=== PATIENT | female | born 1970 | race Caucasian/White ===

== ENCOUNTER 2017-11-11 17:00 | Emergency (ER) | payer BC ==
[2017-11-11 19:26] LABS: INTERNATIONAL RATION (INR) 1.84; PROTHROMBIN TIME 22.1 SEC (11.4-15.4)
[2017-11-11 19:27] LABS: PARTIAL THROMBOPLASTIN TIME 36.6 SEC (23.5-35.8)
[2017-11-11 19:37] LABS: ANION GAP 12 (5-19); BLOOD UREA NITROGEN 8 mg/dL (7-20); CALCIUM 10.3 mg/dL (8.4-10.2); CARBON DIOXIDE 25 mmol/L (22-30); CHLORIDE 108 mmol/L (98-107); GLUCOSE 89 mg/dL (75-110); POTASSIUM 4.1 mmol/L (3.6-5.0); SODIUM 144.9 mmol/L (137-145)
[2017-11-11 19:38] LABS: CREATINE KINASE 68 U/L (30-135)
--- NOTE | 2017-11-11 20:14 | ER Document Report ---
ED General - General Chief Complaint: Leg Pain Stated Complaint: LEG PAIN Time Seen by Provider: 11/11/17 17:45 TRAVEL OUTSIDE OF THE [place] 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 Denies any trauma - Related Data Allergies/Adverse Reactions: steroids Allergy (Uncoded 11/11/17 17:48) Past Medical History - Social History Smoking Status: Current Some Day Smoker Chew tobacco use (# tins/day): No Frequency of alcohol use: Social Drug Abuse: None Family History: Reviewed & Not Pertinent Patient has suicidal ideation: No Patient has homicidal ideation: No Renal/ Medical History: Denies: Hx Peritoneal Dialysis Past Surgical History: Reports: Hx Appendectomy, Hx Cholecystectomy, Hx Hysterectomy Review of Systems - Review of Systems Constitutional: No symptoms reported EENT: No symptoms reported Cardiovascular: No symptoms reported Respiratory: No symptoms reported Gastrointestinal: No symptoms reported Genitourinary: No symptoms reported Female Genitourinary: No symptoms reported Musculoskeletal: Other - Leg pain Skin: No symptoms reported Hematologic/Lymphatic: No symptoms reported Neurological/Psychological: No symptoms reported -: Yes All other systems reviewed and negative Physical Exam - Vital signs Vitals: Temp Pulse Resp BP Pulse Ox 97.6 F 95 18 117/69 99 11/11/17 17:19 11/11/17 17:19 11/11/17 17:19 11/11/17 17:19 11/11/17 17:19 Interpretation: Normal - General General appearance: Appears well, Alert - HEENT Head: Normocephalic, Atraumatic Eyes: Normal Pupils: PERRL - Respiratory Respiratory status: No respiratory distress Chest status: Nontender Breath sounds: Normal Chest palpation: Normal - Cardiovascular Rhythm: Regular Heart sounds: Normal auscultation Murmur: No - Abdominal Inspection: Normal Distension: No distension Bowel sounds: Normal Tenderness: Nontender Organomegaly: No organomegaly - Back Back: Normal, Nontender - Extremities General upper extremity: Normal inspection, Nontender, Normal color, Normal ROM , Normal temperature General lower extremity: Normal inspection, Nontender, Normal color, Normal ROM , Normal temperature, Normal weight bearing. No: Terri's sign - Neurological Neuro grossly intact: Yes Cognition: Normal Orientation: AAOx4 Martell Coma Scale Eye Opening: Spontaneous Fonda Coma Scale Verbal: Oriented Martell Coma Scale Motor: Obeys Commands Fonda Coma Scale Total: 15 Speech: Normal Motor strength normal: LUE, RUE, LLE, RLE Sensory: Normal - Psychological Associated symptoms: Normal affect, Normal mood - Skin Skin Temperature: Warm Skin Moisture: Dry Skin Color: Normal Course - Re-evaluation Re-evalutation: 11/11/17 21:06 Ultrasound is negative for any signs of DVT. Patient INR subtherapeutic at 1.8 recommend patient increase her dose of Coumadin tonight 10 mg 7.5 for the next 2 days patient states she has an appointment to see her physician on Thursday. Otherwise no new significant pathology seen for the patient's leg pain more likely muscle skeletal - Vital Signs Vital signs: Temp Pulse Resp BP Pulse Ox 97.6 F 71 16 106/58 L 100 11/11/17 17:19 11/11/17 20:20 11/11/17 20:20 11/11/17 20:20 11/11/17 20:20 - Laboratory Result Diagrams: 11/11/17 18:53 Laboratory results interpreted by me: 11/11/17 11/11/17 18:53 18:53 PT 22.1 H APTT 36.6 H Chloride 108 H Calcium 10.3 H Discharge - Discharge Clinical Impression: Leg pain Qualifiers: Laterality: unspecified laterality Qualified Code(s): M79.606 - Pain in leg, unspecified Condition: Good Disposition: HOME, SELF-CARE Instructions: Leg Pain Nonspecific ([facility]) Additional Instructions: Your laboratory examination shows that her INR is subtherapeutic at this time 1.8. I would recommend taking 10 mg of Coumadin tonight 7.5 mg tomorrow 7.5 mg on Thursday. Please follow-up with your primary care physician for further evaluation Your ultrasound does not show any signs of DVT tonight. I would recommend Tylenol for pain control he may take Motrin if her doctor has recommended this in the past. Rest she may also use heating pads and ice packs for pain control as well. I would recommend follow-up with your primary care physician as scheduled on Thursday return to ER for any concerning issues.
[2017-11-11 20:43] VITALS: BP 106/58
--- NOTE | 2017-11-12 07:49 | XCELERA REPORT ---
[address] [address] Lower Extremity Venous Evaluation Name: GARY TRACY Age: 47 yrs Gender: Female : 1970 Patient Status: Emergency Patient Location: ER Study Date: 11/11/2017 07:40 PM Procedure: Color flow and duplex imaging of the veins of the left lower extremity as well as the right Common Femoral vein. Reason For Study: pain left leg / Hx clots Ordering Physician: MELISSA PINA Performed By: Leif Hoff Right Sided Venous Evaluation The right common femoral vein is fully compressible. Spontaneous and phasic flow is present in the right common femoral vein. Left Sided Venous Evaluation Normal vessel filling wall to wall, compression and augmentation as well as Colour flow down to the infrageniculate veins. Interpretation Summary No duplex evidence of DVT or obstruction in the left lower extremity nor in the right Common Femoral vein. : MELISSA PINA > Nnamdi Pa
== END 2017-11-11 20:20 | disposition home or self-care (01) ==
LOC: ER 17:00
DX: M79.606 Pain in leg, unspecified (principal); Z86.718 Personal history of other venous thrombosis and embolism; Z86.711 Personal history of pulmonary embolism; Z79.01 Long term (current) use of anticoagulants; F17.200 Nicotine dependence, unspecified, uncomplicated
CPT/HCPCS: 36415; 80048; 82550; 85610; 85730; 93971; 99284